=== PATIENT | female | born 1995 | race Caucasian/White ===

== ENCOUNTER 2016-03-21 11:55 | Outpatient (CLI) | payer OTHER ==
[~2016-03-21] VITALS: Ht 154.9 cm; Wt 66.0 kg
[~2016-03-21 11:55] MED LIST: PRENTAB40 PO
[2016-03-21 12:25] VITALS: BP 137/76
[2016-03-21 13:04] LABS: BASO % 0.2 % (0.0-1.0); EOS % 0.4 % (0.0-3.0); LARGE UNSTAINED CELL # 0.2 K/mm3 (0.0-0.4); LARGE UNSTAINED CELL % 2.3 % (0.0-4.0); LYMPH # 1.4 K/mm3 (1.5-6.5); LYMPH % 14.7 % (24.0-44.0); MEAN CORPUSCULAR HEMOGLOBIN 31.1 pg (27.0-33.0); MEAN CORPUSCULAR HGB CONC 34.3 g/dl (32.0-36.5); MEAN CORPUSCULAR VOLUME 90.8 fl (80.0-96.0); MONO # 0.6 K/mm3 (0.0-0.8); MONO % 5.6 % (0.0-5.0); NEUTROPHILS # 7.5 K/mm3 (1.8-7.7); NEUTROPHILS % 76.8 % (36.0-66.0); PLATELET COUNT, AUTOMATED 388 k/mm3 (150-450); WHITE BLOOD COUNT 9.8 K/mm3 (4.0-10.0)
[2016-03-21 13:24] LABS: ALBUMIN 2.8 GM/DL (3.2-5.2); ALKALINE PHOSPHATASE 76 U/L (45-117); ALT/SGPT 17 U/L (12-78); AMYLASE 54 U/L (25-115); ANION GAP 10 MEQ/L (8-16); AST/SGOT 17 U/L (15-37); BILIRUBIN,TOTAL 0.2 MG/DL (0.2-1.0); BLOOD UREA NITROGEN 7 MG/DL (7-18); CALCIUM LEVEL 8.5 MG/DL (8.5-10.1); CARBON DIOXIDE LEVEL 23 MEQ/L (21-32); CHLORIDE LEVEL 108 MEQ/L (98-107); CREATININE FOR GFR 0.68 MG/DL (0.55-1.02); GLOMERULAR FILTRATION RATE > 60.0 (>60); GLUCOSE, FASTING 88 MG/DL (70-105); POTASSIUM SERUM 3.7 MEQ/L (3.5-5.1); SODIUM LEVEL 141 MEQ/L (136-145); TOTAL PROTEIN 6.3 GM/DL (6.4-8.2)
[2016-03-21 14:23] VITALS: BP 96/60
[2016-03-21 14:48] VITALS: BP 103/58
[2016-03-21 15:53] VITALS: BP 120/72
== END 2016-03-21 16:06 | disposition home or self-care (01) ==
LOC: M LDO 11:55
PROVIDERS: ATTEND Obstetrics & Gynecology
DX: O26.893 Other specified pregnancy related conditions, third trimester (principal); R10.2 Pelvic and perineal pain; O21.9 Vomiting of pregnancy, unspecified; Z3A.28 28 weeks gestation of pregnancy

== ENCOUNTER 2016-04-05 00:28 | Emergency (ER) | payer OTHER ==
[2016-04-05 01:58] LABS: MEAN CORPUSCULAR HEMOGLOBIN 31.1 pg (27.0-33.0); MEAN CORPUSCULAR HGB CONC 35.2 g/dl (32.0-36.5); MEAN CORPUSCULAR VOLUME 88.5 fl (80.0-96.0); RED CELL DISTRIBUTION WIDTH 11.8 % (11.5-14.5); WHITE BLOOD COUNT 13.2 K/mm3 (4.0-10.0)
--- NOTE | 2016-04-05 02:45 | EDDOCDS ---
Physician Documentation [facility] Name: Concepción Pickett Age: 20 yrs Sex: Female : 1995 Arrival Date: 04/05/2016 Time: 00:28 Bed 12 Private MD: Disposition: 04/05 02:37 Critical Care: Critical care not applicable. pc Disposition: 04/05/16 02:39 Patient has left against medical advice. Impression: Fall on same level due to ice and snow, Contusion of abdominal wall, state - 30 weeks. - Patients states they are going to Home/Self Care. - Condition is Unknown. - Discharge Instructions: Contusion, AMA, Third Trimester of , [id number]. Medication Reconciliation, Local Pharmacy Hours form. Follow up: [place], [facility]; When: As soon as possible; Reason: Continuance of care. - Problem is new. - Symptoms are unchanged. HPI: 01:09 This 20 yrs old Female presents to ER via Walkin/Carried/Asstd with pc complaints of Fall Injury. 01:09 The history is obtained from the patient. The gestational age is estimated to be 30 pc weeks. The patient presents with abdominal pain. Symptoms began She slipped on ice and fell onto stairs she was about to climb. She landed on her abdomen and complains of pain. She denies any vaginal bleeding, says the baby has been very active since.. The patient has care through the [place] [facility]. The patient has not experienced similar symptoms in the past. The patient has been recently seen by an program support assistant specialist. Historical: - Allergies: No known drug Allergies; - Home Meds: 1. none - PMHx: none; - PSHx: shoulder, right; - The history from nurses notes was reviewed: and I agree with what is documented. - Social history: Smoking status: Patient states was never smoker of tobacco. No barriers to communication noted, The patient speaks fluent Yi, Speaks appropriately for age. - Family history: Not pertinent. - : The pt / caregiver states he / she is not on anticoagulants. Home medication list is obtained from the patient. - Hospitalizations: : No recent hospitalization is reported. - Exposure Risk Screening:: None identified. - Immunization history:: All immunizations up-to-date. - Social history:: the patient is a non-smoker, the patient does not drink alcohol. FAMILY MEDICINE CHAIR: 01:09 1 pc ROS: 01:09 All systems are negative except as listed. The gastrointestinal and genitourinary pc components are also addressed in the HPI. Exam: 01:09 General Appearance: alert, mild distress. pc 01:09 ENT: ear, nose and throat normal, pharynx normal. 01:09 Neck: The exam reveals no acute abnormalities. ROM is normal and painless. No nuchal rigidity is noted.. 01:09 Respiratory: breathing is even and unlabored, breath sounds are normal. 01:09 Cardiovascular: regular pulse rate, regular heart rhythm, normal heart sounds, equal and full pulses bilaterally. 01:09 Abdomen: the fundal height is is measured at 31 cm, the heart tones were heard with a Doppler device and are 138 bpm, tenderness noted in the right lower quadrant, that is moderate, there is no rebound tenderness, guarding was present, abrasion, 6x8cm, lust inferior to the umbilicus. 01:09 Back: normal inspection. 01:09 Skin: skin color is normal, warm, dry. 01:09 Extremities: no pedal edema. 01:09 Neuro: alert, oriented to person, place and time, cranial nerves normal as tested, no motor deficits, no sensory deficits. 01:09 Psych: mood is normal. Vital Signs: 00:44 BP 121 / 58; Pulse 73; Resp 18; Temp 97.8(O); Pulse Ox 98% on R/A; Weight 65.77 kg / kanika 145 lbs (R); Height 5 ft. 1 in. (154.94 cm) (R); Pain 9/10; 00:44 Body Mass Index 27.40 (65.77 kg, 154.94 cm) kanika MDM: 01:09 Differential diagnosis: abdominal contusion at 30 weeks gestation without vaginal pc bleeding. Plan: d.w OB. 01:19 Physician consultation: Dr. Eagle Salazar MD was contacted at 01:19, regarding pc patient's condition, and advises the medications/treatment as provided. 01:20 CBC Ordered. EDMS 01:20 Ultrasound Obs Single Gestation Ordered. EDMS 01:20 Dex (Kleihauer Betke) Ordered. EDMS 01:51 Financial registration complete. hs2 02:37 Data reviewed: old medical records, vital signs, nurses notes, lab test results. Test pc interpretation: LAB - all labs as ordered have been reviewed, interpreted and considered in the overall management of the clinical presentation;. The patient has been re-examined and re-evaluated. There is no appreciated change of the patient's symptoms at this time, as she left AMA. Disposition: The pt. left the ED after evaluation, with testing and/or treatment incomplete, without provider knowledge of same. AMA risk/benefit counselling was not able to be conducted. There is no evidence or suspicion of mental impairment due to drugs, alcohol, brain injury, stroke, dementia, mental delay or medical/psychiatric illness and the pt. is not a minor. The wait staff will contact the pt. to encourage return. Signatures: Dispatcher [employer] Attila Barraza MD MD pc Nunez, Nikkole,RN RN nn1 Dahlia Solomon, Reg Reg hs2 Susana PaulRN RN tm5 MTDD
--- NOTE | 2016-04-05 02:45 | EDDOCDS ---
Nurse's Notes [facility] Name: Concepción Pickett Age: 20 yrs Sex: Female : 1995 Arrival Date: 04/05/2016 Time: 00:28 Bed 12 Private MD: Diagnosis: Fall on same level due to ice and snow;Contusion of abdominal wall; state-30 weeks Presentation: 04/05 00:32 Presenting complaint: Patient states: she is 30 weeks , reports she slipped on nn1 ice and fell on her stomach and right elbow. Adult Sepsis Screening: The patient does not have new or worsening altered mentation. Patient's respiratory rate is less than 22. Systolic blood pressure is greater than 100. Patient has a qSOFA score of 0- Negative Sepsis Screen. Suicide/Homicide risk assessment- the patient denies having any suicidal and/or homicidal ideations and does not present with any other emotional, behavioral or mental health complaints. Transition of care: patient was not received from another setting of care. 00:32 Acuity: VIK Level 3 nn1 00:32 Method Of Arrival: Walkin/Carried/Asstd nn1 00:35 Status: The patient is a dependent. nn1 Triage Assessment: 00:34 General: Appears uncomfortable, Behavior is appropriate for age. Pain: Location: nn1 abdomen Pain currently is 9 out of 10 on a pain scale. Pain began 2 hours ago. 00:34 HIV screening NA for this visit Offered previously. The patient is triaged at the nn1 bedside. See Assessment in Nurses Notes section of ED record. Respiratory: Airway is patent Respiratory effort is even, labored, Respiratory pattern is regular. Musculoskeletal: Circulation, motion, and sensation intact Capillary refill < 3 seconds Range of motion intact in all extremities. GRUBBER: 01:09 1 pc Historical: - Allergies: No known drug Allergies; - Home Meds: 1. none - PMHx: none; - PSHx: shoulder, right; - The history from nurses notes was reviewed: and I agree with what is documented. - Social history: Smoking status: Patient states was never smoker of tobacco. No barriers to communication noted, The patient speaks fluent Welsh, Speaks appropriately for age. - Family history: Not pertinent. - : The pt / caregiver states he / she is not on anticoagulants. Home medication list is obtained from the patient. - Hospitalizations: : No recent hospitalization is reported. - Exposure Risk Screening:: None identified. - Immunization history:: All immunizations up-to-date. - Social history:: the patient is a non-smoker, the patient does not drink alcohol. Screenin:43 Screening information is obtained from the patient. Fall risk: No risks identified. tm5 Assistance ADL's: requires no assistance with activities of daily living. Abuse/DV Screen: The patient / caregiver reports he/she is: not in a situation that causes fear, pain or injury. Nutritional screening: No deficits noted. Advance Directives: Currently, there is no health care proxy. There is no active DNR order. home support is adequate. Assessment: 00:50 General: Appears distressed, pt shows many facial expressions when her abdomen is tm5 palpated for heart tones . Behavior is anxious, cooperative. Pain: Location: right upper quadrant, right lower quadrant and left lower quadrant Pain currently is 10 out of 10 on a pain scale. Quality of pain is described as crampy, sharp. Neurological: Level of Consciousness is awake, alert, Oriented to person, place, time. Respiratory: Airway is patent Respiratory effort is even, unlabored, Respiratory pattern is regular, symmetrical, Breath sounds are clear bilaterally. GI: Abdomen is distended, pt is 30 weeks Bowel sounds present X 4 quads. Abd is tender to palpation in right upper quadrant, right lower quadrant and left lower quadrant. : No deficits noted. Derm: abrasion noted to mis lower abdomen below umbilicus. Musculoskeletal: No deficits noted. Injury Description: Abrasion sustained to abdomen, below umbilicus pt fell from standing. 02:20 Reassessment: Patient appears in no apparent distress at this time. pt resting on tm5 stretcher, talkative with visitor at bedside . 02:26 General: pt refusing to stay for Ultrasound results, wants to sign out AMA . tm5 Vital Signs: 00:44 BP 121 / 58; Pulse 73; Resp 18; Temp 97.8(O); Pulse Ox 98% on R/A; Weight 65.77 kg (R); kanika Height 5 ft. 1 in. (154.94 cm) (R); Pain 9/10; 00:44 Body Mass Index 27.40 (65.77 kg, 154.94 cm) kanika Vitals: 00:50 Heart Tones 135BPM. tm5 ED Course: 00:30 Patient visited by Naresh Huff Reg. pm4 00:30 Patient moved to Waiting pm4 00:31 Patient moved to Triage 1 nn1 00:33 Triage Initiated nn1 00:43 Patient visited by Susana Paul RN. tm5 00:43 Patient moved to 12 tm5 00:45 Patient visited by Evelyn Robertson PCA. kanika 00:50 Patient visited by Susana Paul RN. tm5 00:50 Awaiting ED physician evaluation. tm5 00:50 The patient / caregiver is instructed regarding the plan of care and ED course. Pulse tm5 ox on. NIBP on. Warm blanket given. Pillow given. 01:08 Attila Olmedo MD is Attending Physician. pc 01:08 Patient visited by Attila Olmedo MD. pc 01:50 Dex (Klemilesauer Fazal) Sent. tm5 01:54 Patient moved to Ultrasound dmg 01:58 Patient moved to [facility]. tm5 01:58 Labs drawn. (by ED staff). Sent per order to lab. tm5 02:15 Patient moved back from [facility]. tm5 02:20 Patient visited by Susana Paul RN. tm5 02:20 Patient moved to 12 dmg 02:26 Patient visited by Susana Paul RN. tm5 02:26 No IV's were initiated during this patient's visit. No procedures done that require tm5 assistance. 02:39 Sandra Ornelas OB is Referral Physician. pc Order Results: Lab Order: CBC; SPEC'M 04/05/16 01:45 Test: WHITE BLOOD COUNT; Value: 13.2; Range: 4.0-10.0; Abnormal: Above high normal; Units: K/mm3; Status: F Test: RED BLOOD COUNT; Value: 3.60; Range: 4.00-5.40; Abnormal: Below low normal; Units: M/mm3; Status: F Test: HEMOGLOBIN; Value: 11.2; Range: 12.0-16.0; Abnormal: Below low normal; Units: g/dl; Status: F Test: HEMATOCRIT; Value: 31.9; Range: 36.0-47.0; Abnormal: Below low normal; Units: %; Status: F Test: MEAN CORPUSCULAR VOLUME; Value: 88.5; Range: 80.0-96.0; Units: fl; Status: F Test: MEAN CORPUSCULAR HEMOGLOBIN; Value: 31.1; Range: 27.0-33.0; Units: pg; Status: F Test: MEAN CORPUSCULAR HGB CONC; Value: 35.2; Range: 32.0-36.5; Units: g/dl; Status: F Test: RED CELL DISTRIBUTION WIDTH; Value: 11.8; Range: 11.5-14.5; Units: %; Status: F Test: PLATELET COUNT, AUTOMATED; Value: 430; Range: 150-450; Units: k/mm3; Status: F Outcome: 02:26 Discharge Assessment: Patient awake, alert and oriented x 3. No cognitive and/or tm5 functional deficits noted. Patient verbalized understanding of disposition instructions. patient administered narcotics - no. The following High Risk Discharge criteria are identified: Yes, pt signed out AMA & is 30 weeks , PSA Vic Trotter aware of this . Condition: good Condition: stable. Ultrasound Study completed. Property :Personal belongings accompany Pt. 02:39 Patient left against medical advice. pc 02:44 Patient left the ED. 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 nn1 nn1 MTDD
--- NOTE | 2016-04-05 03:20 | REPUSA ---
CLINICAL HISTORY: Pelvic pain. TECHNIQUE: Realtime sonographic images were obtained in multiple projections via TA approach. The exa mination was performed by the adjunct latin professor and still images were submitted for interpretation. COMMENTS: Single, live intrauterine gestation in vertex presentation. motion was identified. heart rate 149 beats per minute. Anterior placenta. No evidence of placenta previa. Placenta is grade 1. The amniotic fluid is within normal limits. Cervical length 3.5 cm. Estimated gestational age 30 weeks and 2 days. Estimated delivery date at 06/12/2016. gender is female. The patient was extremely tender and rachael throughout the exam. Amniotic fluid index 9.2 cm. EFW 1581g. IMPRESSION: Single, live intrauterine gestation. Thank you for your kind referral of this patient.
--- NOTE | 2016-04-07 03:45 | EDDOCDS ---
Physician Documentation [facility] Name: Concepción Pickett Age: 20 yrs Sex: Female : 1995 Arrival Date: 04/05/2016 Time: 00:28 Bed 12 Private MD: Disposition: 04/05 02:37 Critical Care: Critical care not applicable. pc Disposition: 04/05/16 02:39 Patient has left against medical advice. Impression: Fall on same level due to ice and snow, Contusion of abdominal wall, state - 30 weeks. - Patients states they are going to Home/Self Care. - Condition is Unknown. - Discharge Instructions: Contusion, AMA, Third Trimester of , [id number]. Medication Reconciliation, Local Pharmacy Hours form. Follow up: [place], [facility]; When: As soon as possible; Reason: Continuance of care. - Problem is new. - Symptoms are unchanged. HPI: 01:09 This 20 yrs old Female presents to ER via Walkin/Carried/Asstd with pc complaints of Fall Injury. 01:09 The history is obtained from the patient. The gestational age is estimated to be 30 pc weeks. The patient presents with abdominal pain. Symptoms began She slipped on ice and fell onto stairs she was about to climb. She landed on her abdomen and complains of pain. She denies any vaginal bleeding, says the baby has been very active since.. The patient has care through the [place] [facility]. The patient has not experienced similar symptoms in the past. The patient has been recently seen by an quality assurance monitor chassis specialist. Historical: - Allergies: No known drug Allergies; - Home Meds: 1. none - PMHx: none; - PSHx: shoulder, right; - The history from nurses notes was reviewed: and I agree with what is documented. - Social history: Smoking status: Patient states was never smoker of tobacco. No barriers to communication noted, The patient speaks fluent Turkish, Speaks appropriately for age. - Family history: Not pertinent. - : The pt / caregiver states he / she is not on anticoagulants. Home medication list is obtained from the patient. - Hospitalizations: : No recent hospitalization is reported. - Exposure Risk Screening:: None identified. - Immunization history:: All immunizations up-to-date. - Social history:: the patient is a non-smoker, the patient does not drink alcohol. 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 The gastrointestinal and genitourinary pc components are also addressed in the HPI. Exam: 01:09 General Appearance: alert, mild distress. pc 01:09 ENT: ear, nose and throat normal, pharynx normal. 01:09 Neck: The exam reveals no acute abnormalities. ROM is normal and painless. No nuchal rigidity is noted.. 01:09 Respiratory: breathing is even and unlabored, breath sounds are normal. 01:09 Cardiovascular: regular pulse rate, regular heart rhythm, normal heart sounds, equal and full pulses bilaterally. 01:09 Abdomen: the fundal height is is measured at 31 cm, the heart tones were heard with a Doppler device and are 138 bpm, tenderness noted in the right lower quadrant, that is moderate, there is no rebound tenderness, guarding was present, abrasion, 6x8cm, lust inferior to the umbilicus. 01:09 Back: normal inspection. 01:09 Skin: skin color is normal, warm, dry. 01:09 Extremities: no pedal edema. 01:09 Neuro: alert, oriented to person, place and time, cranial nerves normal as tested, no motor deficits, no sensory deficits. 01:09 Psych: mood is normal. Vital Signs: 00:44 BP 121 / 58; Pulse 73; Resp 18; Temp 97.8(O); Pulse Ox 98% on R/A; Weight 65.77 kg / kanika 145 lbs (R); Height 5 ft. 1 in. (154.94 cm) (R); Pain 9/10; 00:44 Body Mass Index 27.40 (65.77 kg, 154.94 cm) kanika MDM: 01:09 Differential diagnosis: abdominal contusion at 30 weeks gestation without vaginal pc bleeding. Plan: d.w OB. 01:19 Physician consultation: Dr. Eagle Salazar MD was contacted at 01:19, regarding pc patient's condition, and advises the medications/treatment as provided. 01:20 CBC Ordered. EDMS 01:20 Ultrasound Obs Single Gestation Ordered. EDMS 01:20 Dex (Kleihauer Betke) Ordered. EDMS 01:51 Financial registration complete. hs2 02:37 Data reviewed: old medical records, vital signs, nurses notes, lab test results. Test pc interpretation: LAB - all labs as ordered have been reviewed, interpreted and considered in the overall management of the clinical presentation;. The patient has been re-examined and re-evaluated. There is no appreciated change of the patient's symptoms at this time, as she left AMA. Disposition: The pt. left the ED after evaluation, with testing and/or treatment incomplete, without provider knowledge of same. AMA risk/benefit counselling was not able to be conducted. There is no evidence or suspicion of mental impairment due to drugs, alcohol, brain injury, stroke, dementia, mental delay or medical/psychiatric illness and the pt. is not a minor. The staff rn will contact the pt. to encourage return. 03:36 ON LICENSE OF [facility] Payment Agreement was scanned into Taboola and attached to record. hs2 15:42 Refusal of Services was scanned into Tab[employer] and attached to record. gb Signatures: Dispatcher [employer] EDMS Attila Olmedo MD MD pc Lyn Carolina, Reg Reg gb Ade Osborne,RN RN nn1 Dahlia Solomon, Reg Reg hs2 Susana Paul,RN RN tm5 The chart was reviewed and I authenticate all verbal orders and agree with the evaluation and treatment provided.Attachments: 03:36 ON LICENSE OF [facility] Payment Agreement hs2 Chart Complete MTDD
--- NOTE | 2016-04-07 03:45 | EDDOCDS ---
Physician Documentation [facility] Name: Concepción Pickett Age: 20 yrs Sex: Female : 1995 Arrival Date: 04/05/2016 Time: 00:28 Bed 12 Private MD: Disposition: 04/05 02:37 Critical Care: Critical care not applicable. pc Disposition: 04/05/16 02:39 Patient has left against medical advice. Impression: Fall on same level due to ice and snow, Contusion of abdominal wall, state - 30 weeks. - Patients states they are going to Home/Self Care. - Condition is Unknown. - Discharge Instructions: Contusion, AMA, Third Trimester of , [id number]. Medication Reconciliation, Local Pharmacy Hours form. Follow up: [place], [facility]; When: As soon as possible; Reason: Continuance of care. - Problem is new. - Symptoms are unchanged. HPI: 01:09 This 20 yrs old Female presents to ER via Walkin/Carried/Asstd with pc complaints of Fall Injury. 01:09 The history is obtained from the patient. The gestational age is estimated to be 30 pc weeks. The patient presents with abdominal pain. Symptoms began She slipped on ice and fell onto stairs she was about to climb. She landed on her abdomen and complains of pain. She denies any vaginal bleeding, says the baby has been very active since.. The patient has care through the [place] [facility]. The patient has not experienced similar symptoms in the past. The patient has been recently seen by an administrative medical director specialist. Historical: - Allergies: No known drug Allergies; - Home Meds: 1. none - PMHx: none; - PSHx: shoulder, right; - The history from nurses notes was reviewed: and I agree with what is documented. - Social history: Smoking status: Patient states was never smoker of tobacco. No barriers to communication noted, The patient speaks fluent Greek, Speaks appropriately for age. - Family history: Not pertinent. - : The pt / caregiver states he / she is not on anticoagulants. Home medication list is obtained from the patient. - Hospitalizations: : No recent hospitalization is reported. - Exposure Risk Screening:: None identified. - Immunization history:: All immunizations up-to-date. - Social history:: the patient is a non-smoker, the patient does not drink alcohol. 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 The gastrointestinal and genitourinary pc components are also addressed in the HPI. Exam: 01:09 General Appearance: alert, mild distress. pc 01:09 ENT: ear, nose and throat normal, pharynx normal. 01:09 Neck: The exam reveals no acute abnormalities. ROM is normal and painless. No nuchal rigidity is noted.. 01:09 Respiratory: breathing is even and unlabored, breath sounds are normal. 01:09 Cardiovascular: regular pulse rate, regular heart rhythm, normal heart sounds, equal and full pulses bilaterally. 01:09 Abdomen: the fundal height is is measured at 31 cm, the heart tones were heard with a Doppler device and are 138 bpm, tenderness noted in the right lower quadrant, that is moderate, there is no rebound tenderness, guarding was present, abrasion, 6x8cm, lust inferior to the umbilicus. 01:09 Back: normal inspection. 01:09 Skin: skin color is normal, warm, dry. 01:09 Extremities: no pedal edema. 01:09 Neuro: alert, oriented to person, place and time, cranial nerves normal as tested, no motor deficits, no sensory deficits. 01:09 Psych: mood is normal. Vital Signs: 00:44 BP 121 / 58; Pulse 73; Resp 18; Temp 97.8(O); Pulse Ox 98% on R/A; Weight 65.77 kg / kanika 145 lbs (R); Height 5 ft. 1 in. (154.94 cm) (R); Pain 9/10; 00:44 Body Mass Index 27.40 (65.77 kg, 154.94 cm) kanika MDM: 01:09 Differential diagnosis: abdominal contusion at 30 weeks gestation without vaginal pc bleeding. Plan: d.w OB. 01:19 Physician consultation: Dr. Eagle Salazar MD was contacted at 01:19, regarding pc patient's condition, and advises the medications/treatment as provided. 01:20 CBC Ordered. EDMS 01:20 Ultrasound Obs Single Gestation Ordered. EDMS 01:20 Dex (Kleihauer Betke) Ordered. EDMS 01:51 Financial registration complete. hs2 02:37 Data reviewed: old medical records, vital signs, nurses notes, lab test results. Test pc interpretation: LAB - all labs as ordered have been reviewed, interpreted and considered in the overall management of the clinical presentation;. The patient has been re-examined and re-evaluated. There is no appreciated change of the patient's symptoms at this time, as she left AMA. Disposition: The pt. left the ED after evaluation, with testing and/or treatment incomplete, without provider knowledge of same. AMA risk/benefit counselling was not able to be conducted. There is no evidence or suspicion of mental impairment due to drugs, alcohol, brain injury, stroke, dementia, mental delay or medical/psychiatric illness and the pt. is not a minor. The rn staff will contact the pt. to encourage return. 03:36 [facility] Payment Agreement was scanned into Clicker and attached to record. hs2 15:42 Refusal of Services was scanned into Clicker and attached to record. gb Signatures: Dispatcher [employer] EDMS Attila Olmedo MD MD pc Lyn Carolina, Reg Reg gb Ade Osborne,RN RN nn1 Dahlia Solomon, Reg Reg hs2 Susana Paul,RN RN tm5 The chart was reviewed and I authenticate all verbal orders and agree with the evaluation and treatment provided.Attachments: 03:36 [facility] Payment Agreement hs2 Chart Complete MTDD
--- NOTE | 2016-04-07 03:45 | EDDOCDS ---
Nurse's Notes [facility] Name: Concepción Pickett Age: 20 yrs Sex: Female : 1995 Arrival Date: 04/05/2016 Time: 00:28 Bed 12 Private MD: Diagnosis: Fall on same level due to ice and snow;Contusion of abdominal wall; state-30 weeks Presentation: 04/05 00:32 Presenting complaint: Patient states: she is 30 weeks , reports she slipped on nn1 ice and fell on her stomach and right elbow. Adult Sepsis Screening: The patient does not have new or worsening altered mentation. Patient's respiratory rate is less than 22. Systolic blood pressure is greater than 100. Patient has a qSOFA score of 0- Negative Sepsis Screen. Suicide/Homicide risk assessment- the patient denies having any suicidal and/or homicidal ideations and does not present with any other emotional, behavioral or mental health complaints. Transition of care: patient was not received from another setting of care. 00:32 Acuity: VIK Level 3 nn1 00:32 Method Of Arrival: Walkin/Carried/Asstd nn1 00:35 Status: The patient is a dependent. nn1 Triage Assessment: 00:34 General: Appears uncomfortable, Behavior is appropriate for age. Pain: Location: nn1 abdomen Pain currently is 9 out of 10 on a pain scale. Pain began 2 hours ago. 00:34 HIV screening NA for this visit Offered previously. The patient is triaged at the nn1 bedside. See Assessment in Nurses Notes section of ED record. Respiratory: Airway is patent Respiratory effort is even, labored, Respiratory pattern is regular. Musculoskeletal: Circulation, motion, and sensation intact Capillary refill < 3 seconds Range of motion intact in all extremities. 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 none - PMHx: none; - PSHx: shoulder, right; - The history from nurses notes was reviewed: and I agree with what is documented. - Social history: Smoking status: Patient states was never smoker of tobacco. No barriers to communication noted, The patient speaks fluent Trinidadian, Speaks appropriately for age. - Family history: Not pertinent. - : The pt / caregiver states he / she is not on anticoagulants. Home medication list is obtained from the patient. - Hospitalizations: : No recent hospitalization is reported. - Exposure Risk Screening:: None identified. - Immunization history:: All immunizations up-to-date. - Social history:: the patient is a non-smoker, the patient does not drink alcohol. Screenin:43 Screening information is obtained from the patient. Fall risk: No risks identified. tm5 Assistance ADL's: requires no assistance with activities of daily living. Abuse/DV Screen: The patient / caregiver reports he/she is: not in a situation that causes fear, pain or injury. Nutritional screening: No deficits noted. Advance Directives: Currently, there is no health care proxy. There is no active DNR order. home support is adequate. Assessment: 00:50 General: Appears distressed, pt shows many facial expressions when her abdomen is tm5 palpated for heart tones . Behavior is anxious, cooperative. Pain: Location: right upper quadrant, right lower quadrant and left lower quadrant Pain currently is 10 out of 10 on a pain scale. Quality of pain is described as crampy, sharp. Neurological: Level of Consciousness is awake, alert, Oriented to person, place, time. Respiratory: Airway is patent Respiratory effort is even, unlabored, Respiratory pattern is regular, symmetrical, Breath sounds are clear bilaterally. GI: Abdomen is distended, pt is 30 weeks Bowel sounds present X 4 quads. Abd is tender to palpation in right upper quadrant, right lower quadrant and left lower quadrant. : No deficits noted. Derm: abrasion noted to mis lower abdomen below umbilicus. Musculoskeletal: No deficits noted. Injury Description: Abrasion sustained to abdomen, below umbilicus pt fell from standing. 02:20 Reassessment: Patient appears in no apparent distress at this time. pt resting on tm5 stretcher, talkative with visitor at bedside . 02:26 General: pt refusing to stay for Ultrasound results, wants to sign out AMA . tm5 Social Work Consult: 02:49 LWBS/AMA AMA: Patient is refusing further stabilizing treatment at [facility], although cl offered treatment regardless of method of payment or ability to pay. Patient is aware that this action is being undertaken against the advice of the medical staff at [facility]. Pt. has capacity to understand the potential consequences of this choice. pt did notify ED staff. Patient / guardian did sign Refusal of Services form. Pt left before being seen by PSA. Vital Signs: 00:44 BP 121 / 58; Pulse 73; Resp 18; Temp 97.8(O); Pulse Ox 98% on R/A; Weight 65.77 kg (R); kanika Height 5 ft. 1 in. (154.94 cm) (R); Pain 9/10; 00:44 Body Mass Index 27.40 (65.77 kg, 154.94 cm) kanika Vitals: 00:50 Heart Tones 135BPM. tm5 ED Course: 00:30 Patient visited by Naresh Huff Reg. pm4 00:30 Patient moved to Waiting pm4 00:31 Patient moved to Triage 1 nn1 00:33 Triage Initiated nn1 00:43 Patient visited by Susana Paul RN. tm5 00:43 Patient moved to 12 tm5 00:45 Patient visited by Evelyn Robertson PCA. kanika 00:50 Patient visited by Susana Paul RN. tm5 00:50 Awaiting ED physician evaluation. tm5 00:50 The patient / caregiver is instructed regarding the plan of care and ED course. Pulse tm5 ox on. NIBP on. Warm blanket given. Pillow given. 01:08 Attila Olmedo MD is Attending Physician. pc 01:08 Patient visited by Attila Olmedo MD. pc 01:50 Dex (Mitchell Diehl) Sent. tm5 01:54 Patient moved to Ultrasound dmg 01:58 Patient moved to Sono. tm5 01:58 Labs drawn. (by ED staff). Sent per order to lab. tm5 02:15 Patient moved back from Sono. tm5 02:20 Patient visited by Susana Paul RN. tm5 02:20 Patient moved to 12 dmg 02:26 Patient visited by Susana Paul RN. tm5 02:26 No IV's were initiated during this patient's visit. No procedures done that require tm5 assistance. 02:39 [place], OB is Referral Physician. pc 03:20 Ultrasound Obs Single Gestation Returned. EDMS 03:36 [facility] Payment Agreement was scanned into [email or web address] and attached to record. hs2 15:42 Refusal of Services was scanned into [email or web address] and attached to record. gb Attachments: 15:42 Refusal of Services gb Order Results: Lab Order: Dex (Kleihauer Betke); SPEC'M 04/05/16 01:45 Test: DEX (KLEIHAUER BETKE); Value: 0.0000; Units: RATIO; Status: F Test Note: ; No cells seen. Lab Order: CBC; SPEC'M 04/05/16 01:45 Test: WHITE BLOOD COUNT; Value: 13.2; Range: 4.0-10.0; Abnormal: Above high normal; Units: K/mm3; Status: F Test: RED BLOOD COUNT; Value: 3.60; Range: 4.00-5.40; Abnormal: Below low normal; Units: M/mm3; Status: F Test: HEMOGLOBIN; Value: 11.2; Range: 12.0-16.0; Abnormal: Below low normal; Units: g/dl; Status: F Test: HEMATOCRIT; Value: 31.9; Range: 36.0-47.0; Abnormal: Below low normal; Units: %; Status: F Test: MEAN CORPUSCULAR VOLUME; Value: 88.5; Range: 80.0-96.0; Units: fl; Status: F Test: MEAN CORPUSCULAR HEMOGLOBIN; Value: 31.1; Range: 27.0-33.0; Units: pg; Status: F Test: MEAN CORPUSCULAR HGB CONC; Value: 35.2; Range: 32.0-36.5; Units: g/dl; Status: F Test: RED CELL DISTRIBUTION WIDTH; Value: 11.8; Range: 11.5-14.5; Units: %; Status: F Test: PLATELET COUNT, AUTOMATED; Value: 430; Range: 150-450; Units: k/mm3; Status: F Radiology Order: Ultrasound Obs Single Gestation Test: Ultrasound Obs Single Gestation REASON FOR EXAMINATION: r/o abruption; ; CLINICAL HISTORY: Pelvic pain.; TECHNIQUE: Realtime sonographic images were obtained in multiple projections via TA approach. The exa; mination was performed by the supervisor electron tube processing and still images were submitted for interpretation.; COMMENTS:; Single, live intrauterine gestation in vertex presentation.; motion was identified.; heart rate 149 beats per minute.; Anterior placenta.; No evidence of placenta previa.; Placenta is grade 1.; The amniotic fluid is within normal limits.; Cervical length 3.5 cm.; Estimated gestational age 30 weeks and 2 days.; Estimated delivery date at 06/12/2016.; gender is female.; The patient was extremely tender and rachael throughout the exam.; Amniotic fluid index 9.2 cm.; EFW 1581g.; IMPRESSION:; Single, live intrauterine gestation.; Thank you for your kind referral of this patient.; ; Outcome: 02:26 Discharge Assessment: Patient awake, alert and oriented x 3. No cognitive and/or tm5 functional deficits noted. Patient verbalized understanding of disposition instructions. patient administered narcotics - no. The following High Risk Discharge criteria are identified: Yes, pt signed out AMA & is 30 weeks , PSA Vic Trotter aware of this . Condition: good Condition: stable. Ultrasound Study completed. Property :Personal belongings accompany Pt. 02:39 Patient left against medical advice. 02:44 Patient left the ED. tm5 Signatures: Dispatcher [employer] EDMS Attila Olmedo MD MD pc Lavin, Chris, PSA PSA Kiana Overton dmLyn Jean, Reg Reg gb Evelyn Robertson, ELECTRONIC DATA PROCESSING AUDITOR ELECTRONIC DATA PROCESSING AUDITOR Ade Nielsen RN RN nn1 Dahlia Solomon, Reg Reg hs2 Susana Paul RN RN tm5 Naresh Huff, Reg Reg pm4 Corrections: (The following items were deleted from the chart) 00:35 00:32 Status: Patient is not a employee service officer or dependent. nn1 nn1 Chart Complete MTDD
== END 2016-04-05 02:30 | disposition left against medical advice (07) ==
LOC: M ED 00:28
DX: O9A.213 Injury, poisoning and certain other consequences of external causes complicating pregnancy, third trimester (principal); S30.1XXA Contusion of abdominal wall, initial encounter; W00.0XXA Fall on same level due to ice and snow, initial encounter; Y92.89 Other specified places as the place of occurrence of the external cause; Y93.89 Activity, other specified; Y99.8 Other external cause status; Z3A.30 30 weeks gestation of pregnancy

== ENCOUNTER 2016-05-19 17:11 | Outpatient (CLI) | payer OTHER ==
[~2016-05-19] VITALS: Ht 154.9 cm; Wt 72.0 kg
[2016-05-19 17:22] VITALS: BP 115/72
[2016-05-19 18:16] LABS: MEAN CORPUSCULAR HEMOGLOBIN 29.2 pg (27.0-33.0); MEAN CORPUSCULAR HGB CONC 33.5 g/dl (32.0-36.5); MEAN CORPUSCULAR VOLUME 87.2 fl (80.0-96.0); RED CELL DISTRIBUTION WIDTH 13.1 % (11.5-14.5); WHITE BLOOD COUNT 15.6 K/mm3 (4.0-10.0)
[2016-05-19] MEDS ORDERED: PRENTAB9 PO (18:22)
[2016-05-19] MEDS ORDERED: LR 1,000 ML IV ONE (18:30)
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
== END 2016-05-19 19:10 | disposition home or self-care (01) ==
LOC: M LDO 17:11
PROVIDERS: ATTEND Obstetrics & Gynecology
DX: O26.893 Other specified pregnancy related conditions, third trimester (principal); Z3A.36 36 weeks gestation of pregnancy; M25.551 Pain in right hip; R10.31 Right lower quadrant pain

== ENCOUNTER 2016-06-15 08:36 | Outpatient (CLI) | payer OTHER, SELFPAY ==
[~2016-06-15] VITALS: Ht 154.9 cm; Wt 72.0 kg
[~2016-06-15 08:36] MED LIST changes: +PRENTAB9 PO
[2016-06-15 08:51] VITALS: BP 112/56
[2016-06-15 11:06] VITALS: BP 103/56
== END 2016-06-15 12:21 | disposition home or self-care (01) ==
LOC: M LDO 08:36
PROVIDERS: ATTEND Student in an Organized Health Care Education/Training Program
DX: O47.1 False labor at or after 37 completed weeks of gestation (principal); Z3A.40 40 weeks gestation of pregnancy

== ENCOUNTER 2016-06-16 23:51 | Outpatient (CLI) | payer OTHER ==
[2016-06-17] MEDS ORDERED: BUTORPHANOL 2 MG/ML INJ (J0595) IV ONE (00:30)
[2016-06-17] MEDS ORDERED: PROMETHAZINE INJ 25 MG/ML VIAL (J2550) IV ONE (00:30)
[2016-06-17 00:56] LABS: MEAN CORPUSCULAR HEMOGLOBIN 28.1 pg (27.0-33.0); MEAN CORPUSCULAR HGB CONC 33.2 g/dl (32.0-36.5); MEAN CORPUSCULAR VOLUME 84.7 fl (80.0-96.0); RED CELL DISTRIBUTION WIDTH 13.9 % (11.5-14.5); WHITE BLOOD COUNT 13.6 K/mm3 (4.0-10.0)
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
--- NOTE | 2016-06-17 08:36 | DSES ---
DATE OF ADMISSION: 06/16/2016 DATE OF DISCHARGE: 06/17/2016 This lady was admitted because she was having she said food poisoning of over 2 days because of eating [place] food and she was unable to tolerate anything. She also said she had some contractions that were 10 minutes apart. She was evaluated over the past 2 hours, re-examined, and found to still be 3 cm, about 100% effaced, -3 station with bulging membranes. The monitor suggested occasional tightenings and every time the patient felt the baby move, she would flex her abdomen which would show up on the monitor. A category 1 strip was noted. Patient had not progressed beyond 3 cm. She elected to go home and was given precautions and told to come back when she had contractions that are 5-7 minutes apart, she was breathing through them, ruptured membranes, or in active labor. Patient and expressed understanding, and she was discharged to come back when she is in active labor. Edited: 06/20/2016 1227 cc: *Sandra ARECHIGA
== END 2016-06-17 02:37 | disposition home or self-care (01) ==
LOC: M LDO 23:51
PROVIDERS: ATTEND Obstetrics & Gynecology
DX: O26.893 Other specified pregnancy related conditions, third trimester (principal); Z3A.40 40 weeks gestation of pregnancy; O21.9 Vomiting of pregnancy, unspecified; O62.0 Primary inadequate contractions
CPT/HCPCS: 59025; 85027; 86780; 86850; 86900; 86901; 96374; 96375; J0595

== ENCOUNTER 2016-06-17 08:00 | Inpatient (IN) | payer OTHER ==
[2016-06-17] VITALS (37 sets, daily range): BP systolic 102–174; BP diastolic 58–100
[~2016-06-17] VITALS: Ht 154.9 cm; Wt 72.0 kg
[2016-06-17] MEDS ORDERED: LR 1,000 ML IV SCH (09:25)
[2016-06-17] MEDS ORDERED: PENICILLIN G POTASSIUM IV 5 MU in D5W MINI-BAG PLUS 100 ML IV STA (09:25)
[2016-06-17] MEDS ORDERED: LACTATED RINGER'S 1000 ML IV ONE (09:30)
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
[2016-06-17 09:52] LABS: MEAN CORPUSCULAR HEMOGLOBIN 28.1 pg (27.0-33.0); MEAN CORPUSCULAR HGB CONC 32.9 g/dl (32.0-36.5); MEAN CORPUSCULAR VOLUME 85.5 fl (80.0-96.0); RED CELL DISTRIBUTION WIDTH 13.9 % (11.5-14.5); WHITE BLOOD COUNT 13.8 K/mm3 (4.0-10.0)
[2016-06-17] MEDS ORDERED: FENTANYL 2MCG/ML ROPIVACAINE 0.2% IN 0.9% NACL 200ML IVBAG As Ordered ONE (10:08)
[2016-06-17] MEDS ORDERED: LACTATED RINGER'S 1000 ML IV PRN (11:15)
[2016-06-17] MEDS ORDERED: EPIDURAL COMMENT XX SCH (11:15)
[2016-06-17] MEDS ORDERED: ONDANSETRON 4MG/2ML VIAL (J2405) IV PRN ×2 (11:15→21:15)
[2016-06-17] MEDS ORDERED: NALOXONE INJ 0.4 MG/1 ML VIAL (J2310) IV PRN (11:15)
[2016-06-17] MEDS ORDERED: FENTANYL/ROPIVACAINE/NACL BAG 200 ML EPIDURAL SCH (11:15)
[2016-06-17] MEDS ORDERED: ePHEDrine SULFATE 25 MG/5 ML(5MG/ML) SYRINGE IV PRN (11:15)
[2016-06-17] MEDS ORDERED: REFRIGERATOR IV KEYS XX PRN (11:15)
[2016-06-17] MEDS ORDERED: diphenhydrAMINE INJ 50MG/ML VIAL (J1200) IV PRN (11:15)
[2016-06-17] MEDS ORDERED: EPIDURAL/PCA KEYS XX PRN (11:15)
[2016-06-17] MEDS ORDERED: OXYTOCIN DRIP 30 UNITS in APPROPRIATE DILUENT 1 EA IV SCH ×2 (12:00→21:10)
[2016-06-17] MEDS ORDERED: fentaNYL 100 MCG/2 ML INJECTION (J3010) As Ordered ONE (12:42)
[2016-06-17] MEDS: PENICILLIN G POTASSIUM IV 2.5 MU in D5W 100 ML IV SCH ×2 (13:39→17:46)
[2016-06-17] MEDS ORDERED: METHYLERGONOVINE MALEATE 0.2 MG/ML VIAL (J2210) IM PRN (21:15)
[2016-06-17] MEDS ORDERED: PROMETHAZINE 25 MG TAB PO PRN (21:15)
[2016-06-17] MEDS ORDERED: MEASLES,MUMPS,RUBELLA VACCINE INJ (MMR-II) (90707) SC SCH (21:15)
[2016-06-17] MEDS ORDERED: DIBUCAINE 1% OINTMENT 30GM TOP PRN (21:15)
[2016-06-17] MEDS ORDERED: ACETAMINOPHEN 500 MG TAB PO PRN (21:15)
[2016-06-17] MEDS ORDERED: RHOGAM 300 MCG (1500 IU) INJ (J2790) IM SCH (21:15)
[2016-06-18] MEDS: IBUPROFEN 800 MG TAB PO PRN ×3 (00:56→19:13)
[2016-06-18 06:19] VITALS: BP 126/67
[2016-06-18] MEDS: DOCUSATE SODIUM 100 MG CAP PO SCH ×2 (08:27→21:37)
[2016-06-18] MEDS: PRENATAL VITAMIN TAB PO SCH (08:27)
[2016-06-18 17:45] VITALS: BP 125/72
[2016-06-19 05:46] VITALS: BP 118/64
[2016-06-19] MEDS: PRENATAL VITAMIN TAB PO SCH (08:04)
[2016-06-19] MEDS: DOCUSATE SODIUM 100 MG CAP PO SCH (08:04)
[2016-06-19] MEDS ORDERED: IBUP800T23 PO (17:58)
[2016-06-19] MEDS ORDERED: TYLE500T78 PO (17:58)
[2016-06-19] MEDS ORDERED: COLA100C3 PO (17:58)
[2016-06-19 18:00] VITALS: BP 122/65
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
== END 2016-06-19 18:15 | disposition home or self-care (01) | DRG 775 ==
LOC: M LDO 08:00 → M LDI 08:23 → M OBS 22:52
PROVIDERS: ADMIT Obstetrics & Gynecology; ATTEND Obstetrics & Gynecology
PROC: 10E0XZZ Delivery of Products of Conception, External Approach (ICD-10-PCS; principal; 2016-06-17)
PROC: 0HQ9XZZ Repair Perineum Skin, External Approach (ICD-10-PCS; 2016-06-17)
DX: O48.0 Post-term pregnancy (principal); Z37.0 Single live birth; Z3A.40 40 weeks gestation of pregnancy; O99.820 Streptococcus B carrier state complicating pregnancy; O70.0 First degree perineal laceration during delivery

== ENCOUNTER 2016-07-16 23:26 | Emergency (ER) | payer OTHER ==
[~2016-07-16] VITALS: Ht 154.9 cm; Wt 64.4 kg
[~2016-07-16 23:26] MED LIST changes: +COLA100C3 PO; +IBUP800T23 PO; +TYLE500T78 PO
[2016-07-17] MEDS ORDERED: GASTROGRAFIN SOLUTION 30ML (Q9963) As Ordered ONE (01:25)
[2016-07-17] MEDS ORDERED: GASTROGRAFIN SOLUTION 30ML (Q9963) PO ONE ×2 (01:30→02:00)
[2016-07-17 01:50] LABS: BASO # 0.1 K/mm3 (0.0-0.2); BASO % 0.7 % (0.0-1.0); EOS # 0.1 K/mm3 (0.0-0.50); EOS % 1.5 % (0.0-3.0); LARGE UNSTAINED CELL # 0.2 K/mm3 (0.0-0.4); LARGE UNSTAINED CELL % 2.6 % (0.0-4.0); LYMPH # 3.9 K/mm3 (1.5-6.5); MEAN CORPUSCULAR HEMOGLOBIN 28.9 pg (27.0-33.0); MEAN CORPUSCULAR HGB CONC 32.8 g/dl (32.0-36.5); MEAN CORPUSCULAR VOLUME 88.2 fl (80.0-96.0); MONO # 0.4 K/mm3 (0.0-0.8); MONO % 4.7 % (0.0-5.0); NEUTROPHILS # 4.2 K/mm3 (1.8-7.7); NEUTROPHILS % 47.5 % (36.0-66.0); PLATELET COUNT, AUTOMATED 510 k/mm3 (150-450); RED CELL DISTRIBUTION WIDTH 14.3 % (11.5-14.5); WHITE BLOOD COUNT 8.9 K/mm3 (4.0-10.0)
[2016-07-17 02:19] LABS: CONTROL LINE HCG INT CTR LINE PRESENT
[2016-07-17 02:27] LABS: ALBUMIN 3.6 GM/DL (3.2-5.2); ALBUMIN/GLOBULIN RATIO 1.06 (1.00-1.93); ALKALINE PHOSPHATASE 97 U/L (45-117); ALT/SGPT 28 U/L (12-78); AMYLASE 52 U/L (25-115); ANION GAP 5 MEQ/L (8-16); AST/SGOT 14 U/L (15-37); BILIRUBIN,DIRECT < 0.1 MG/DL (0.0-0.2); BILIRUBIN,TOTAL 0.3 MG/DL (0.2-1.0); BLOOD UREA NITROGEN 17 MG/DL (7-18); CARBON DIOXIDE LEVEL 28 MEQ/L (21-32); CHLORIDE LEVEL 109 MEQ/L (98-107); GLOMERULAR FILTRATION RATE > 60.0 (>60); GLUCOSE, FASTING 79 MG/DL (70-105); POTASSIUM SERUM 4.1 MEQ/L (3.5-5.1); SODIUM LEVEL 142 MEQ/L (136-145)
[2016-07-17] MEDS ORDERED: ISOVUE-370 76% 100ML VIAL (Q9967) As Ordered ONE (02:59)
--- NOTE | 2016-07-17 03:40 | REPUSA ---
CLINICAL HISTORY: Abdominal pain. TECHNIQUE: Multiple axial, sagittal and coronal CT images were obtained through the abdomen and pelvi s after administration of oral and intravenous contrast material. COMMENTS: The liver is of uniform attenuation without mass or defect. There is no intra or extrahepatic biliary ductal dilatation. The spleen is normal. The gallbladder is within normal limits. The pancreas is of normal contour and attenuation characteristics. There is no evidence of adrenal mass. Both kidneys demonstrate prompt and equal nephrograms. The kidneys are normal in size, shape and conf iguration. There is no evidence of renal or ureteral mass. No renal or ureteral calculi are identifie d. There is no hydroureter or hydronephrosis. No evidence for appendicitis. There is no bowel wall thickening. No evidence for small or large flavio l obstruction. There is no evidence of abdominal ascites or lymphadenopathy. There is no evidence of intrinsic or extrinsic bladder mass. There is minimal free pelvic fluid. Thickened bladder. Images of the lung bases show no evidence of pleural or parenchymal mass. There are no pleural effusi ons. The bony structures are free of lytic or blastic lesions. IMPRESSION: Cystitis. Minimal free fluid in the pelvis. Mild large bowel fecal stasis. Thank you for your kind referral of this patient.
[2016-07-17] MEDS ORDERED: BACT800T5 PO (03:45)
[2016-07-17] MEDS ORDERED: BACTRIM 160MG/800MG DS TAB PO ONE (04:00)
[2016-07-17 04:08] VITALS: BP 112/56
== END 2016-07-17 04:09 | disposition home or self-care (01) ==
LOC: M ED 23:53
DX: N30.00 Acute cystitis without hematuria (principal); K56.41 Fecal impaction; F41.9 Anxiety disorder, unspecified
CPT/HCPCS: 36415; 74177; 80048; 80076; 81001; 82150; 83690; 84703; 85025; 87086; 99283; Q9963; Q9967

== ENCOUNTER 2016-11-07 19:08 | Emergency (ER) | payer OTHER ==
[~2016-11-07] VITALS: Ht 154.9 cm; Wt 66.4 kg
[2016-11-07 19:08] VITALS: BP_SYST 117
[~2016-11-07 19:08] MED LIST changes: +BACT800T5 PO; -COLA100C3 PO; +COLA100C5 PO; +IBUP1TAB7 PO; -IBUP800T23 PO
[2016-11-07] MEDS ORDERED: ALBUTEROL SULFATE 2.5 MG/0.5 ML INH NEB SOLN NEB ONE (22:15)
[2016-11-07 22:36] LABS: BASO % 0.5 % (0.0-1.0); EOS # 0.1 K/mm3 (0.0-0.50); EOS % 1.2 % (0.0-3.0); LARGE UNSTAINED CELL # 0.2 K/mm3 (0.0-0.4); LARGE UNSTAINED CELL % 2.2 % (0.0-4.0); LYMPH # 3.3 K/mm3 (1.5-6.5); MEAN CORPUSCULAR HEMOGLOBIN 31.8 pg (27.0-33.0); MEAN CORPUSCULAR HGB CONC 36.2 g/dl (32.0-36.5); MEAN CORPUSCULAR VOLUME 87.9 fl (80.0-96.0); MONO # 0.4 K/mm3 (0.0-0.8); NEUTROPHILS # 5.1 K/mm3 (1.8-7.7); PLATELET COUNT, AUTOMATED 429 k/mm3 (150-450); RED CELL DISTRIBUTION WIDTH 12.2 % (11.5-14.5); WHITE BLOOD COUNT 9.1 K/mm3 (4.0-10.0)
[2016-11-07 23:04] LABS: ANION GAP 7 MEQ/L (8-16); BLOOD UREA NITROGEN 14 MG/DL (7-18); CALCIUM LEVEL 8.7 MG/DL (8.5-10.1); CARBON DIOXIDE LEVEL 25 MEQ/L (21-32); CHLORIDE LEVEL 109 MEQ/L (98-107); CREATININE FOR GFR 0.72 MG/DL (0.55-1.02); GLOMERULAR FILTRATION RATE > 60.0 (>60); GLUCOSE, FASTING 86 MG/DL (70-105); SODIUM LEVEL 141 MEQ/L (136-145)
[2016-11-08 00:45] VITALS: BP_DIAS 113
--- NOTE | 2016-11-08 07:36 | REP ---
Clinical: Shortness of breath . Comparison: None . Technique: PA and lateral. Findings: The mediastinum and cardiac silhouette are normal. The lung bruno are clear and without acute consolidation, effusion, or pneumothorax. The skeletal structures are intact and normal. Impression: 1. No acute cardiopulmonary process. Signed by Charly Beltran MD 11/08/2016 07:28 A
--- NOTE | 2016-11-09 07:13 | ECGEPIP ---
Stationary ECG Study [facility] - ED Test Date: 2016-11-07 Pat Name: PO HYLTON Department: Room: - Gender: F Molder: luke : 1995 Requested By: MIRTA Vuong Order Number: [id number] Reading MD: Ashleigh Lux Measurements Intervals [place] Rate: 79 P: 37 ID: [id number] QRS: 49 QRSD: 105 T: 30 QT: 367 QTc: 421 Interpretive Statements SINUS RHYTHM NO PRIOR FOR COMPARISON Electronically Signed On 11-09-2016 7:12:40 EDT by Ashleigh Lux
== END 2016-11-08 00:48 | disposition home or self-care (01) ==
LOC: M ED 19:08
DX: M94.0 Chondrocostal junction syndrome [Tietze] (principal); J45.909 Unspecified asthma, uncomplicated; F41.9 Anxiety disorder, unspecified; N92.6 Irregular menstruation, unspecified; Z87.891 Personal history of nicotine dependence

== ENCOUNTER 2016-12-17 13:12 | Emergency (ER) | payer OTHER ==
[~2016-12-17] VITALS: Ht 154.9 cm; Wt 64.5 kg
[2016-12-17 13:13] VITALS: BP 105/70
[2016-12-17] MEDS ORDERED: HYDR-3713 PO (13:23)
[2016-12-17] MEDS ORDERED: [UNRECOGNIZED DRUG - REMARK] PO (13:23)
[2016-12-17] MEDS ORDERED: ACETAMINOPHEN 325 MG TAB PO ONE (16:15)
[2016-12-17] MEDS ORDERED: ONDANSETRON 4 MG ORAL DISINTEGRATING TAB (S0181) PO ONE (16:15)
[2016-12-17] MEDS ORDERED: KETOROLAC 30 MG/ML VIAL (J1885) IM ONE (16:15)
--- NOTE | 2016-12-17 16:37 | REP ---
Ultrasound of the soft tissues in the right biceps area: The the patient has an extreme right shoulder pain and cannot move or position her upper extremity. Ultrasound is performed with her arm across her abdomen. There is edematous appearing muscular tissue. No focal fluid collection, abscess or hematoma is identified. The study is otherwise unremarkable. Signed by Adolfo Ko MD 12/17/2016 04:28 P
== END 2016-12-17 16:55 | disposition home or self-care (01) ==
LOC: M ED 13:12
DX: M25.511 Pain in right shoulder (principal); F17.200 Nicotine dependence, unspecified, uncomplicated; Z87.09 Personal history of other diseases of the respiratory system; F41.8 Other specified anxiety disorders
CPT/HCPCS: 76882; 96374; 99282; J1885